=== PATIENT | female | born 1985 | race Caucasian/White ===

== ENCOUNTER 2018-07-12 07:34 | Emergency (ER) | payer OTHER ==
[2018-07-12 07:59] VITALS: BP 132/77
--- NOTE | 2018-07-12 09:04 | ED Physician Documentation ---
History of Present Illness - Stated complaint Stated Complaint: FEMALE - Chief complaint Chief Complaint: General - Additonal information Additional information: hx from pt 33 f [place] recurrent L bartholins has had surgery with [place] so it spont drains starting to re-occur drained spont last night but still painful no fever ? preg Review of Systems Constitutional: denies: Fever : reports: Now EGA (maybe), Other (bartholins) Immunocompromised: denies: Immunocompromised PD PAST MEDICAL HISTORY - Present Medications Home Medications: Ambulatory Orders Medication Instructions Recorded Confirmed Ibuprofen [Motrin] 800 mg PO Q8H PRN #30 tablet 07/12/18 Sulfamethox/Trimeth 800/160 1 each PO BID #14 tablet 07/12/18 [Bactrim Ds 800/160] - Allergies Allergies/Adverse Reactions: Allergies Allergy/AdvReac Type Severity Reaction Status Date / Time Penicillins Allergy Anaphylaxis Verified 07/12/18 07:59 - Social History Does the pt smoke?: No Smoking Status: Never smoker Does the pt drink ETOH?: Yes - Immunizations Immunizations are current?: Yes PD ED PE NORMAL - Vitals Vital signs reviewed: Yes - Cardiac Cardiac: RRR - Respiratory Respiratory: Clear bilaterally - Female Female : Other (tenderness erythema and induration inner post L labia but no fluctance or drainable abscess) Results - Vitals Vitals: Vital Signs - 24 hr 07/12/18 07:57 Temperature 36.7 C Heart Rate 79 Respiratory 16 Rate Blood Pressure 132/77 H O2 Saturation 100 Oxygen O2 Source Room air Departure - Departure Disposition: Home, Self Care Clinical Impression: Bartholin's gland infection Condition: Good Instructions: Bartholin Cyst Abscess Follow-Up: [facility] [Provider Group] (Monday for a recheck ) Prescriptions: Ibuprofen [Motrin] 800 mg PO Q8H PRN #30 tablet PRN Reason: Pain Sulfamethox/Trimeth 800/160 [Bactrim Ds 800/160] 1 each PO BID #14 tablet Comments: At this point the cyst has drained spontaneously and does not need to be lanced. Recommend warm compresses / sitz bath several times a day. Motrin for the pain Take the antibiotics as prescribed Off work two days Follow up [facility] Monday for a recheck Forms: Activity restrictions
[2018-07-12 09:16] LABS: HCG UR QUAL NEGATIVE
== END 2018-07-12 09:25 | disposition home or self-care (01) ==
LOC: ED 07:34
DX: N75.8 Other diseases of Bartholin's gland (principal)
CPT/HCPCS: 81025; 99283

== ENCOUNTER 2022-01-17 10:00 | Outpatient (CLI) | payer OTHER ==
[2022-01-17 20:46] LABS: BACTERIAL VAGINOSIS DNA POSITIVE (NEGATIVE); CANDIDA GLABRATA DNA NEGATIVE (NEGATIVE); CANDIDA GROUP DNA NEGATIVE (NEGATIVE); CANDIDA KRUSEI DNA NEGATIVE (NEGATIVE); TRICHOMONAS VAGINALIS DNA NEGATIVE (NEGATIVE)
[2022-01-17 21:31] LABS: CHLAMYDIA TRACHOMATIS DNA NEGATIVE (NEGATIVE); NEISSERIA GONORRHOEAE DNA NEGATIVE (NEGATIVE)
== END 2022-01-17 23:59 | disposition home or self-care (01) ==
LOC: LAB.N 10:00
PROVIDERS: ATTEND Physician Assistant
DX: N89.9 Noninflammatory disorder of vagina, unspecified (principal)
CPT/HCPCS: 81514; 87491; 87591; 87661